=== PATIENT | female | born 2000 | race Hispanic/Latino ===

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

== ENCOUNTER 2022-03-10 00:10 | Emergency (ER) | payer OTHER ==
--- OUTSIDE RECORDS SUMMARY | 2022-03-10 00:12 | XMS REPORT | Continuity of Care Document ---
:2000 Author Organization [facility] t Address [address] [place] [address] Care Team Providers Name Role Phone Catia Edmondson Primary Care Physician Joseph SEGAL Attending Clinician Payers Payer Name Policy Type Policy Number Effective Date Expiration Date S ource Problems Condition Condition Condition Status Onset Resolution Last Treating Co mments Source Name Details Category Date Date Treatment Clinician Date Abnormal Abnormal Disease Active Unive rs CT of CT of 10-26 ity of brain brain 00:00: [place] [facility] TOOLMAN TOOLMAN Disease Active Univers stimulant stimulant 10-26 [place] overdose[place] 00 Med[place] l initial initial Branch encounter encounter Chlamydia Chlamydia Disease Active Uni vers trachomati trachomati 06-10 it y of s s 00:00: [place] infection infection 00 Medi maría of lower of lower Branch genitourin genitourin lola sites lola sites 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 06-01 it y of tive tive 00:00: [place] disorder disorder 00 Medica l due to due to Branch another another medical medical condition condition CVA CVA Disease Active Univers (cerebral (cerebral 05-31 ity of vascular vascular 00:00: [place] accident) accident) [facility] Suicide Suicide Disease Active Univers attempt attempt 05-31 ity of 00:00: [place] 00 [facility] Illicit Illicit Disease Active Univers drug use drug use 05-30 ity of 00:00: [place] 00 [facility] Purposeful Purposeful Disease Active U nivers non-suicid non-suicid 05-30 it y of al drug al drug 00:00: [place] ingestion ingestion [facility] Allergies, Adverse Reactions, Alerts This patient has no known allergies or adverse reactions. Social History Social Habit Start Date Stop Date Quantity Comments Source Alcohol intake 2021-11-09 2021-11-09 Current University of 00:00:00 00:00:00 non-drinker of [facility] alcohol [place] (finding) Tobacco use and 2019-01-21 2019-01-21 Never used Universit y of exposure 00:00:00 00:00:00 [facility] Sex Assigned At [birth year] Universit y of 00:00:00 00:00:00 [facility] Smoking Status Start Date Stop Date Source Never smoker [facility] Medications Ordered Filled Start Stop Current Ordering Indication Dosage Frequency Signature Comments Components Source Medication Medication Date Date Medication? Clinician (SIG) Name Name Clindamycin 2021- No [id number] 1{appli Insert 1 Univers Phosphate 3-10 18 cator} Applicator i ty of (CLINDESSE) 00:00: 04:59 into [place] 2 % CmSR 00 :00 vagina at [facility] bedtime [place] for 7 days. Immunizations Ordered Filled Immunization Date Status Comments [facility] e Immunization Name Name Influenza Virus 2019-07-05 Completed Universit y of Vaccine Quad .5 mL 00:00:00 [facility] IM 6+ MO Branch TDAP 2019-07-05 Completed University 00:00:00 [facility] Rho (d) Immune 2019-07-05 Completed [facility] Globulin 00:00:00 [facility] Procedures This patient has no known procedures. Encounters Start End Encounter Admission Attending Care Care Encounter Source Date/Time Date/Time Type Type Clinicians Facility Department ID 2021-11-17 2021-11-[address] [facility] [id number] Univers 00:00:00 00:00:00 SHARYN [id number] it y of WOMEN'S [id number] [facility] [id number] [facility] [address] Branch Results This patient has no known results.
[2022-03-10] MEDS ORDERED: NA CHLORIDE 0.9% 1,000 ML ONE (01:18)
[2022-03-10 01:19] LABS: Absolute Lymphocytes (CBC) 0.8 K/uL (0.7-4.9); Hematocrit 38.4 % (36.0-45.0); Lymphocytes % 12.2 % (15.3-44.8); MPV 10.6 fL (7.6-11.3); RBC Red Blood Cell Count 4.49 M/uL (3.86-4.86)
[2022-03-10 01:20] LABS: Protime INR 1.2
[2022-03-10 01:47] LABS: ALT/SGPT 23 U/L (12-78); AST/SGOT 22 U/L (15-37); Albumin 4.1 g/dL (3.4-5.0); Alkaline Phosphatase 117 U/L (45-117); BUN Blood Urea Nitrogen 8 mg/dL (7-18); Bicarbonate 25 mmol/L (21-32); Bilirubin Direct 0.2 mg/dL (0-0.2); Bilirubin Total 0.8 mg/dL (0.2-1.0); Glomerular Filtration Rate 131 ml/min (=/>90); Glucose Level 92 mg/dL (74-106); Potassium 4.2 mmol/L (3.5-5.1); Protein, Total 7.3 g/dL (6.4-8.2); Sodium Level 140 mmol/L (136-145)
[2022-03-10 03:11] LABS: Urine Blood Negative (Negative); Urine Glucose Negative (Negative); Urine Protein 1+ (Negative); Urine Specific Gravity >=1.030 (1.005-1.030)
[2022-03-10] MEDS ORDERED: CEFTRIAXONE 1000 MG/VIAL ONE (03:31)
[2022-03-10 03:57] LABS: Barbiturates NEGATIVE (NEGATIVE); Benzodiazepines POSITIVE (NEGATIVE); Cocaine POSITIVE (NEGATIVE); METHAMPHETAM NEGATIVE (NEGATIVE); Methadone NEGATIVE (NEGATIVE); Opiates NEGATIVE (NEGATIVE); Phencyclidine NEGATIVE (NEGATIVE); THC Cannibis POSITIVE (NEGATIVE)
--- NOTE | 2022-03-10 06:34 | EDPHYS ---
Physician Documentation [facility] Name: Ida Tesfaye Age: 21 yrs Sex: Female : 2000 Arrival Date: 03/10/2022 Time: 00:13 Bed 18 Private MD: ED Physician Pacheco Lloyd HPI: 03/10 02:23 This 21 yrs old Female presents to ER via EMS with complaints of ams, overdose.shanna 02:23 The patient presents to the emergency department after a known overdose, a result of [facility] recreational substance abuse. Context: the OD/poisoning occurred at at home. Associated signs and symptoms: Pertinent positives: dizziness. The patient has experienced similar episodes in the past, several times. 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 - Social history:: Smoking status: unknown. - Family history:: not pertinent. ROS: 02:23 Constitutional: Negative for fever, chills, and weight loss, Eyes: Negative for injury, shanna pain, redness, and discharge, ENT: Negative for injury, pain, and discharge, Neck: Negative for injury, pain, and swelling, Cardiovascular: Negative for chest pain, palpitations, and edema, Respiratory: Negative for shortness of breath, cough, wheezing, and pleuritic chest pain, Abdomen/GI: Negative for abdominal pain, nausea, vomiting, diarrhea, and constipation, Back: Negative for injury and pain, : Negative for injury, bleeding, discharge, and swelling, MS/Extremity: Negative for injury and deformity, Skin: Negative for injury, rash, and discoloration, Neuro: Negative for headache, weakness, numbness, tingling, and seizure, Allergy/Immunology: Negative for hives, rash, and allergies, Endocrine: Negative for neck swelling, polydipsia, polyuria, polyphagia, and marked weight changes, Hematologic/Lymphatic: Negative for swollen nodes, abnormal bleeding, and unusual bruising. 02:23 Neuro: Positive for altered mental status. 02:23 Psych: Positive for depression. Exam: 02:23 Constitutional: This is a well developed, well nourished patient who is awake, alert, shanna and in no acute distress. Head/Face: Normocephalic, atraumatic. Eyes: Pupils equal round and reactive to light, extra-ocular motions intact. Lids and lashes normal. Conjunctiva and sclera are non-icteric and not injected. Cornea within normal limits. Periorbital areas with no swelling, redness, or edema. ENT: Nares patent. No nasal discharge, no septal abnormalities noted. Tympanic membranes are normal and external auditory canals are clear. Oropharynx with no redness, swelling, or masses, exudates, or evidence of obstruction, uvula midline. Mucous membranes moist. Neck: Trachea midline, no thyromegaly or masses palpated, and no cervical lymphadenopathy. Supple, full range of motion without nuchal rigidity, or vertebral point tenderness. No Meningismus. Chest/axilla: Normal chest wall appearance and motion. Nontender with no deformity. No lesions are appreciated. Cardiovascular: Regular rate and rhythm with a normal S1 and S2. No gallops, murmurs, or rubs. Normal PMI, no JVD. No pulse deficits. Respiratory: Lungs have equal breath sounds bilaterally, clear to auscultation and percussion. No rales, rhonchi or wheezes noted. No increased work of breathing, no retractions or nasal flaring. Abdomen/GI: Soft, non-tender, with normal bowel sounds. No distension or tympany. No guarding or rebound. No evidence of tenderness throughout. Back: No spinal tenderness. No costovertebral tenderness. Full range of motion. Skin: Warm, dry with normal turgor. Normal color with no rashes, no lesions, and no evidence of cellulitis. MS/ Extremity: Pulses equal, no cyanosis. Neurovascular intact. Full, normal range of motion. Neuro: Awake and alert, GCS 15, oriented to person, place, time, and situation. Cranial nerves II-XII grossly intact. Motor strength 5/5 in all extremities. Sensory grossly intact. Cerebellar exam normal. Normal gait. Psych: Awake, alert, with orientation to person, place and time. Behavior, mood, and affect are within normal limits. 02:29 ECG was reviewed by the Attending Physician. [facility] Vital Signs: 00:15 BP 116 / 78; Pulse 75; Resp 19; Temp 98.6(O); Pulse Ox 98% on R/A; Weight 49.9 kg; kd3 Height 5 ft. 3 in. (160.02 cm); Pain 0/10; 01:20 BP 104 / 65; Pulse 56; Resp 16; Pulse Ox 99% on R/A; kd3 02:50 BP 118 / 78; Pulse 68; Resp 18; Pulse Ox 98% ; kd3 03:09 BP 108 / 65; Pulse 59; Resp 18; Pulse Ox 98% on R/A; kd3 03:59 BP 112 / 86; Pulse 64; Resp 18; Pulse Ox 98% on R/A; kd3 04:45 BP 106 / 82; Pulse 80; Resp 17; Pulse Ox 99% on R/A; kd3 05:46 BP 107 / 74; Pulse 62; Resp 18; Pulse Ox 97% on R/A; kd3 06:26 BP 119 / 78; Pulse 59; Resp 15; Pulse Ox 97% ; kd3 00:15 Body Mass Index 19.49 (49.90 kg, 160.02 cm) kd3 MDM: 00:51 Patient medically screened. shanna 02:25 Differential diagnosis: Ingestion/exposure to lexapro, percocet. Data reviewed: vital shanna signs, nurses notes, lab test result(s), EKG. Data interpreted: awake overnight monitor: rate is 56 beats/min, rhythm is regular, Pulse oximetry: on room air is 99 %. Test interpretation: by ED physician or midlevel provider: ECG. Counseling: I had a detailed discussion with the patient and/or guardian regarding: the historical points, exam findings, and any diagnostic results supporting the discharge/admit diagnosis. 03/10 00:45 Order name: Acetaminophen 3 03/10 00:45 Order name: Basic Metabolic Panel kd3 03/10 00:45 Order name: CBC with Diff; Complete Time: 02:3 03/10 00:45 Order name: ETOH Level; Complete Time: 02:3 03/10 00:45 Order name: Hepatic Function 3 03/10 00:45 Order name: PT-INR; Complete Time: 02: 3 03/10 00:45 Order name: Ptt, Activated; Complete Time: 02: 3 03/10 00:45 Order name: Salicylate; Complete Time: 02:22 kd3 03/10 00:45 Order name: Urine Drug Screen; Complete Time: 05:31 kd3 03/10 01:26 Order name: Glucose, Ancillary Testing; Complete Time: 02:22 EDMS 03/10 03:11 Order name: Urine Dipstick-Ancillary; Complete Time: 03:12 EDMS 03/10 03:14 Order name: Urine Culture shanna 03/10 00:45 Order name: Accucheck; Complete Time: 01:18 kd3 03/10 00:45 Order name: EKG; Complete Time: 00:46 kd3 03/10 00:45 Order name: EKG - Nurse/Tech; Complete Time: 00:47 kd3 03/10 00:45 Order name: IV Saline Lock; Complete Time: 00:55 kd3 03/10 00:45 Order name: Labs collected and sent; Complete Time: 00:55 kd3 03/10 00:45 Order name: Suicide Screening ([place]); Complete Time: 00:47 kd3 03/10 00:45 Order name: Urine Dipstick-Ancillary (obtain specimen); Complete Time: 03:08 kd3 03/10 00:47 Order name: Urine Test (obtain specimen); Complete Time: 03:08 kd3 EC:29 Rate is 58 beats/min. Rhythm is regular. QRS [place] is Normal. CT interval is normal. QRS shanna interval is normal. QT interval is normal. No Q waves. T waves are Normal. No ST changes noted. Clinical impression: NSR w/ Non-specific ST/T Changes and No evidence of ischemia. Interpreted by me. Reviewed by me. Administered Medications: 01:17 Drug: NS 0.9% 1000 ml Route: IV; Rate: 1 bolus; Site: left antecubital; kd3 06:39 Follow up: Response: No adverse reaction; IV Status: Completed infusion kd3 01:18 CANCELLED (Duplicate Order): NS 0.9% 1000 ml IV at 1 bolus Per protocol; 1000 mL bolus kd3 03:26 Drug: Rocephin (cefTRIAXone) 1 grams Route: IV; Rate: per protocol; Site: left kd3 antecubital; 06:38 Follow up: Response: No adverse reaction; IV Status: Completed infusion kd3 Disposition Summary: 03/10/22 06:33 Discharge Ordered Location: Home shanna Problem: new shanna Symptoms: have improved shanna Condition: Stable shanna Diagnosis - Other depressive episodes shanna - Other psychoactive substance use, unspecified - lexapro/percocet shanna - UTI/ Urinary tract infection, site not specified shanna - Cocaine abuse shanna - Abuse of other non-psychoactive substances shanna - Adverse effect of benzodiazepines shanna Followup: shanna - With: Private Physician - When: 2 - 3 days - Reason: Recheck today's complaints, Re-evaluation by your physician Followup: shanna - With: - When: 2 - 3 days - Reason: Recheck today's complaints, Continuance of care, Re-evaluation by your physician Discharge Instructions: - Discharge Summary Sheet shanna - Substance Use Disorder shanna - Managing Depression, Adult shanna - Substance Use Disorder and Mental Illness shanna - Urinary Tract Infection, Adult shanna - Urinary Tract Infection, Adult, [id number]-Cfst shanna - Supporting Someone With Substance Use Disorder shanna Forms: - Medication Reconciliation Form shanna - Thank You Letter shanna - Antibiotic Education shanna - Prescription Opioid Use shanna Prescriptions: - Cipro 250 mg Oral Tablet - take 1 tablet by ORAL route every 12 hours; 14 tablet; Refills: 0, Product shanna Selection Permitted Signatures: Dispatcher [employer] EDPacheco Mitchell MD MD cha Doucette, Kyli RN RN kd3 Corrections: (The following items were deleted from the chart) 01:18 00:45 NS 0.9% 1000 ml IV at 1 bolus Per protocol; 1000 mL bolus ordered. kd3 kd3
--- NOTE | 2022-03-10 06:34 | ER ---
Nurse's Notes [facility] Name: Ida Tesfaye Age: 21 yrs Sex: Female : 2000 Arrival Date: 03/10/2022 Time: 00:13 Bed 18 Private MD: Diagnosis: Other depressive episodes;Other psychoactive substance use, unspecified-lexapro/percocet;UTI/ Urinary tract infection, site not specified;Cocaine abuse;Abuse of other non-psychoactive substances;Adverse effect of benzodiazepines Presentation: 03/10 00:15 Chief complaint: EMS states: pt took 30 pills of escitalopram and 1 OxyContin in an kd3 attempt to get high around 1800 to 1900. pt vomited large amounts several times. Coronavirus screen: Vaccine status: Patient reports receiving the 2nd dose of the covid vaccine. Ebola Screen: No symptoms or risks identified at this time. Initial Sepsis Screen: Does the patient meet any 2 criteria? No. Patient's initial sepsis screen is negative. Does the patient have a suspected source of infection? No. Patient's initial sepsis screen is negative. Risk Assessment: Do you want to hurt yourself or someone else? Patient reports no desire to harm self or others. Onset of symptoms was March 10, 2022. 00:15 Method Of Arrival: EMS kd3 00:15 Acuity: AMIEE 3 kd3 Triage Assessment: 00:24 General: Appears in no apparent distress. Behavior is calm, cooperative. Pain: Denies kd3 pain. 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 - Social history:: Smoking status: unknown. - Family history:: not pertinent. Screenin:25 Abuse screen: Denies threats or abuse. Denies injuries from another. Nutritional kd3 screening: No deficits noted. Tuberculosis screening: No symptoms or risk factors identified. Fall Risk None identified. Assessment: 00:47 Reassessment: pt denies any thought of harming herself or others. kd3 01:21 Reassessment: Patient and/or family updated on plan of care and expected duration. Pain kd3 level reassessed. Patient is alert, oriented x 3, equal unlabored respirations, skin warm/dry/pink. this RN spoke with poison control, , passenger relations representative; Jordana. recommendations include, basic toxicology screening and cbc, CMP and to monitor electrolytes. in addition, pt needs to be monitored for a temperature spike, hypo or hyper glycemia, and possible seizure activities, even tho theses symptoms are rare. symptoms to expect include drowsiness and headache. pt started on a NS bolus per poison control recommendation. 01:26 Reassessment: poison control recommends the patient be observed for 13 hours. pt and MD cheatham notified of recommended observation time. 03:09 General: Appears in no apparent distress. Behavior is calm, cooperative, drowsy. Pain: kd3 Denies pain. Neuro: Level of Consciousness is awake, alert, obeys commands, Oriented to person, place, time, situation. Cardiovascular: Patient's skin is warm and dry. Rhythm is sinus bradycardia. Respiratory: Airway is patent Trachea midline Respiratory effort is even, unlabored, Respiratory pattern is regular. 04:00 Reassessment: No changes from previously documented assessment. Patient and/or family kd3 updated on plan of care and expected duration. Pain level reassessed. Patient is alert, oriented x 3, equal unlabored respirations, skin warm/dry/pink. 04:46 Reassessment: No changes from previously documented assessment. Patient and/or family kd3 updated on plan of care and expected duration. Pain level reassessed. Patient is alert, oriented x 3, equal unlabored respirations, skin warm/dry/pink. 05:46 Reassessment: Patient and/or family updated on plan of care and expected duration. Pain kd3 level reassessed. Patient is alert, oriented x 3, equal unlabored respirations, skin warm/dry/pink. this RN updated poison control regarding the pt and plan. Vital Signs: 00:15 BP 116 / 78; Pulse 75; Resp 19; Temp 98.6(O); Pulse Ox 98% on R/A; Weight 49.9 kg; kd3 Height 5 ft. 3 in. (160.02 cm); Pain 0/10; 01:20 BP 104 / 65; Pulse 56; Resp 16; Pulse Ox 99% on R/A; kd3 02:50 BP 118 / 78; Pulse 68; Resp 18; Pulse Ox 98% ; kd3 03:09 BP 108 / 65; Pulse 59; Resp 18; Pulse Ox 98% on R/A; kd3 03:59 BP 112 / 86; Pulse 64; Resp 18; Pulse Ox 98% on R/A; kd3 04:45 BP 106 / 82; Pulse 80; Resp 17; Pulse Ox 99% on R/A; kd3 05:46 BP 107 / 74; Pulse 62; Resp 18; Pulse Ox 97% on R/A; kd3 06:26 BP 119 / 78; Pulse 59; Resp 15; Pulse Ox 97% ; kd3 00:15 Body Mass Index 19.49 (49.90 kg, 160.02 cm) kd3 ED Course: 00:13 Patient arrived in ED. mw2 00:13 Shannan Gibson, RN is Primary Nurse. kd3 00:23 Triage completed. kd3 00:24 Arm band placed on right wrist. kd3 00:25 Patient has correct armband on for positive identification. kd3 00:25 No provider procedures requiring assistance completed. kd3 00:50 Pacheco Lloyd MD is Attending Physician. shanna 06:33 Emerson Jett MD is Referral Physician. shanna 06:38 IV discontinued, intact, bleeding controlled, No redness/swelling at site. Pressure kd3 dressing applied. Administered Medications: 01:17 Drug: NS 0.9% 1000 ml Route: IV; Rate: 1 bolus; Site: left antecubital; kd3 06:39 Follow up: Response: No adverse reaction; IV Status: Completed infusion kd3 01:18 CANCELLED (Duplicate Order): NS 0.9% 1000 ml IV at 1 bolus Per protocol; 1000 mL bolus kd3 03:26 Drug: Rocephin (cefTRIAXone) 1 grams Route: IV; Rate: per protocol; Site: left kd3 antecubital; 06:38 Follow up: Response: No adverse reaction; IV Status: Completed infusion kd3 Medication: 00:25 VIS not applicable for this client. kd3 Outcome: 06:33 Discharge ordered by . shanna 06:38 Discharged to home ambulatory. kd3 06:38 Condition: stable 06:38 Discharge instructions given to patient, Instructed on discharge instructions, follow up and referral plans. medication usage, Demonstrated understanding of instructions, follow-up care, medications, Prescriptions given X 1. 06:43 Patient left the ED. kd3 Addendum: 03/13/2022 18:40 Addendum: Culture Results: Positive urine culture. No further action required. Bacteria s s sensitive to prescribed antibiotic. Signatures: Pacheco Lloyd MD MD cha Smirch, Shelby, RN RN [facility] Shannan Gibson RN RN kd3
[2022-03-10 06:56] VITALS: TEMP 98.6
[2022-03-10 07:12] VITALS: O2SAT 97
[2022-03-10 07:13] VITALS: BP 119/78
--- NOTE | 2022-03-10 15:28 | EKG ---
Test Date: 2022-03-10 Test Time: 00:28:49 Director Workers Compensation: FRAN MEASUREMENT RESULTS: Intervals: Rate: 58 [place]: 138 QRSD: 88 QT: 420 QTc: 412 [place]: P: 11 [place]: 138 QRS: 88 T: 58 INTERPRETIVE STATEMENTS: Sinus bradycardia Otherwise normal ECG Compared to ECG 05/30/2018 05:47:08 Sinus rhythm no longer present Electronically Signed On 03-10-22 15:26:53 CDT by Fred Balbuena
== END 2022-03-10 06:43 | disposition home or self-care (01) ==
LOC: ER 00:10
DX: F32.89 Other specified depressive episodes (principal); F19.90 Other psychoactive substance use, unspecified, uncomplicated; N39.0 Urinary tract infection, site not specified; F14.10 Cocaine abuse, uncomplicated; F55.8 Abuse of other non-psychoactive substances; T42.4X5A Adverse effect of benzodiazepines, initial encounter; F41.9 Anxiety disorder, unspecified
CPT/HCPCS: 96365; 96361; 93005; 87088; 85025; 87086; 80048; 36415; 80320; 80329 ×2; 85610; 82947; 80076; 85730; 87077; 87186; 81003; 80307; 99284; 96366; J7030

== ENCOUNTER 2022-03-28 21:08 | Emergency (ER) | payer OTHER ==
[2022-03-28] MEDS ORDERED: NA CHLORIDE 0.9% 1,000 ML ONE (22:15)
--- NOTE | 2022-03-28 22:28 | EDPHYS ---
Physician Documentation [facility] Name: Ida Tesfaye Age: 21 yrs Sex: Female : 2000 Arrival Date: 03/28/2022 Time: 21:11 Bed 26 Private MD: ED Physician Pacheco Lloyd HPI: 03/28 21:57 This 21 yrs old Female presents to ER via Ambulatory with complaints of Drug pm1 Abuse. 21:59 . Patient with reported polysubstance abuse and is seeking help in the ER for drug pm1 rehabilitation. Patient reports using cocaine marijuana and fentanyl. Patient is here in the ER with her boyfriend who is presenting with the same complaint of polysubstance abuse. Onset: The symptoms/episode began/occurred Patient has been using drugs for multiple years. The patient has not recently seen a physician. PLUG GROWER: 21:28 LMP 09/25/2019 jb4 Historical: - Allergies: 21:28 No Known Allergies; jb4 - PMHx: 21:28 Anxiety; depressive disorder; jb4 - PSHx: 21:28 None; jb4 - Immunization history:: Adult Immunizations up to date. - Social history:: Smoking status: Reported history of juuling and/or vaping. Patient uses street drugs, cocaine, marijuana, M30, Fentynal, Patient/guardian denies using alcohol. ROS: 21:59 Constitutional: Negative for fever, chills, and weight loss, Cardiovascular: Negative pm1 for chest pain, palpitations, and edema, Respiratory: Negative for shortness of breath, cough, wheezing, and pleuritic chest pain, Abdomen/GI: Negative for abdominal pain, nausea, vomiting, diarrhea, and constipation, Back: Negative for injury and pain, MS/Extremity: Negative for injury and deformity, Skin: Negative for injury, rash, and discoloration, Neuro: Negative for headache, weakness, numbness, tingling, and seizure. 21:59 All other systems are negative. Exam: 21:59 Constitutional: This is a well developed, well nourished patient who is awake, alert, pm1 and in no acute distress. Head/Face: Normocephalic, atraumatic. 21:59 Back: No spinal tenderness. No costovertebral tenderness. Full range of motion. Skin: Warm, dry with normal turgor. Normal color with no rashes, no lesions, and no evidence of cellulitis. MS/ Extremity: Pulses equal, no cyanosis. Neurovascular intact. Full, normal range of motion. 21:59 Eyes: Exam is negative for acute changes, Periorbital structures: appear normal, Pupils: no acute changes, Extraocular movements: no acute changes, Conjunctiva: no acute changes, no injection. 21:59 ENT: Exam is negative for acute changes, External ear(s): no acute changes, Ear canal(s): no acute changes, TM's: no acute changes, Mouth: no acute changes, Lips: normal, moist, Oral mucosa: normal, pink and intact, moist. 21:59 Cardiovascular: Exam negative for acute changes, Rate: normal, Rhythm: regular, Pulses: no pulse deficits are appreciated. 21:59 Respiratory: Exam negative for acute changes, respiratory distress, shortness of breath. 21:59 Abdomen/GI: Exam negative for acute changes, Inspection: abdomen appears normal, Palpation: abdomen is soft and non-tender, in all quadrants. 21:59 Neuro: Exam negative for acute changes, Orientation: is normal, Mentation: is normal, Motor: is normal, moves all fours. 23:25 ECG was reviewed by the Attending Physician. [facility] Vital Signs: 21:25 BP 120 / 94; Pulse 76; Resp 16; Temp 99.3(TE); Pulse Ox 100% ; Weight 45.36 kg (R); jb4 Height 5 ft. 3 in. (160.02 cm) (R); Pain 8/10; 22:48 BP 115 / 79; Pulse 89; Resp 18 S; Pulse Ox 100% on R/A; bb 03/29 00:50 BP 128 / 85; Pulse 85; Resp 16; Pulse Ox 97% on R/A; Pain 10/10; jb4 03/28 21:25 Body Mass Index 17.71 (45.36 kg, 160.02 cm) [facility] MDM: 03/28 21:43 Patient medically screened. [facility] 22:24 Data reviewed: vital signs. Data interpreted: Pulse oximetry: on room air is 100 %. pm1 Interpretation: normal. Counseling: I had a detailed discussion with the patient and/or guardian regarding: the need for outpatient follow up, for definitive care, need for treatment in a drug rehabilitation center and cessation of drug use. Patient wants to leave to go home with her boyfriend who is in the ER for drug abuse also. She does not want to get any labs or fluids for her symptoms. 23:01 ED course: Patient with possible seizure activity and fall in her boyfriend's ER room. pm1 Will order CT head and neck for evaluation for injury. 03/29 00:47 ED course: CT head and neck negative. pm1 03/28 21:57 Order name: Acetaminophen; Complete Time: 23:35 pm1 03/28 21:57 Order name: Basic Metabolic Panel; Complete Time: 23:35 pm1 03/28 21:57 Order name: CBC with Diff; Complete Time: 23:28 pm03/28 21:57 Order name: ETOH Level; Complete Time: 23:35 pm03/28 21:57 Order name: Hepatic Function; Complete Time: 23:35 pm03/28 21:57 Order name: PT-INR; Complete Time: 23:28 pm03/28 21:57 Order name: Ptt, Activated; Complete Time: 23:28 pm03/28 21:57 Order name: Salicylate; Complete Time: 23:35 pm1 03/28 21:57 Order name: Urine Drug Screen; Complete Time: 23:35 pm03/28 22:53 Order name: Urine --Ancillary (enter results); Complete Time: 23:28 03/28 22:53 Order name: Urine Dipstick-Ancillary; Complete Time: 22:58 EDMA 03/28 22:59 Order name: CT Head C Spine pm1 03/28 21:57 Order name: EKG - Nurse/Tech; Complete Time: 22:51 pm03/28 21:57 Order name: IV Saline Lock; Complete Time: 22:51 pm03/28 21:57 Order name: Labs collected and sent; Complete Time: 22:51 pm03/28 21:57 Order name: Urine Dipstick-Ancillary (obtain specimen); Complete Time: 22:51 pm03/28 21:57 Order name: Urine Test (obtain specimen); Complete Time: 22:51 pm1 EC/04 23:25 Rate is 94 beats/min. Rhythm is regular. QRS [place] is Normal. MO interval is normal. QRS shanna interval is normal. QT interval is normal. No Q waves. T waves are Normal. No ST changes noted. Clinical impression: NSR w/ Non-specific ST/T Changes and No evidence of ischemia. Interpreted by me. Reviewed by me. Administered Medications: 23:56 Discontinued: NS 0.9% 1000 ml IV at 1000 ml once bb 22:51 Drug: NS 0.9% 1000 ml Route: IV; Rate: 1000 ml; Site: right antecubital; bb 23:08 CANCELLED (Duplicate Order): Ativan (LORazepam) 1 mg IVP once bb 23:56 Drug: NS 0.9% 1000 ml Route: IV; Rate: 1000 ml; Site: left antecubital; bb 03/29 01:03 Follow up: IV Status: Completed infusion; IV Intake: 950ml bb 01:03 Not Given (Physician Discretion): Zofran (Ondansetron) 4 mg IVP once; over 2 minutes bb 01:03 Not Given (Physician Discretion): Ativan (LORazepam) 1 mg IVP once bb Disposition Summary: 03/29/22 00:51 Discharge Ordered Location: Home(03/29/22 00:51) pm1 Problem: new(03/29/22 00:51) pm1 Symptoms: have improved(03/29/22 00:51) pm1 Condition: Stable(03/29/22 00:51) pm1 Diagnosis - Other seizures pm1 - Cannabis abuse pm1 - Cocaine abuse pm1 - Benzodiazepine abuse pm1 Followup: pm1 - With: Emergency Department - When: As needed - Reason: Worsening of condition Followup: pm1 - With: Private Physician - When: 2 - 3 days - Reason: Recheck today's complaints, Continuance of care, Re-evaluation by your physician Discharge Instructions: - Discharge Summary Sheet pm1 - Cocaine Use Disorder pm1 - Cannabis Use Disorder pm1 - Seizure, Adult pm1 - Illegal Drug Use Information, Adult pm1 Forms: - Medication Reconciliation Form pm1 - Thank You Letter pm1 - Antibiotic Education pm1 - Prescription Opioid Use pm1 Signatures: Dispatcher [employer] EDMS Pacheco Lloyd MD MD cha Ballard, Brenda, RN RN bb Dez Quintero, TIGHTENER TIGHTENER pm1 Buddy Parsons, RN RN jb4 Corrections: (The following items were deleted from the chart) 03/28 22:54 22:27 Home pm1 pm1 :54 22:27 new pm1 pm1 : 22:27 have improved pm1 pm1 : 22:27 Undetermined pm1 pm1 : 22:27 Polysubstance drug abuse pm1 pm1 23: 22:58 Head C Spine MPR Wo Con+CT.RAD.BRZ ordered. EDMS EDMS : 22:59 Ativan (LORazepam) 1 mg IVP once ordered. pm1 bb
--- NOTE | 2022-03-28 22:28 | ER ---
Nurse's Notes [facility] Name: Ida Tesfaye Age: 21 yrs Sex: Female : 2000 Arrival Date: 03/28/2022 Time: 21:11 Bed 26 Private MD: Diagnosis: Other seizures;Cannabis abuse;Cocaine abuse;Benzodiazepine abuse Presentation: 03/28 21:25 Chief complaint: Patient states: I last used fentanyl around 2am. I am currently jb4 withdrawing from it. Coronavirus screen: At this time, the client does not indicate any symptoms associated with coronavirus-19. Ebola Screen: No symptoms or risks identified at this time. Initial Sepsis Screen: Does the patient meet any 2 criteria? No. Patient's initial sepsis screen is negative. Does the patient have a suspected source of infection? No. Patient's initial sepsis screen is negative. Risk Assessment: Do you want to hurt yourself or someone else? Patient reports no desire to harm self or others. Onset of symptoms was March 28, 2022. Transition of care: patient was not received from another setting of care. 21:25 Method Of Arrival: Ambulatory jb4 21:25 Acuity: AIMEE 3 jb4 Triage Assessment: 21:28 General: Appears in no apparent distress. uncomfortable, Behavior is calm, cooperative, jb4 appropriate for age. Pain: Complains of pain in Generalized body pain. Pain does not radiate. Pain currently is 8 out of 10 on a pain scale. Neuro: Level of Consciousness is awake, alert, obeys commands, Oriented to person, place, time, situation. Cardiovascular: Patient's skin is warm and dry. Respiratory: Airway is patent Respiratory effort is even, unlabored, Respiratory pattern is regular, symmetrical. GI: Reports nausea, vomiting. Derm: Skin is intact, Skin is pink, warm \\T\\ dry. Musculoskeletal: Circulation, motion, and sensation intact. Range of motion: intact in all extremities. ARNP: 21:28 LMP 09/25/2019 jb4 Historical: - Allergies: 21:28 No Known Allergies; jb4 - PMHx: 21:28 Anxiety; depressive disorder; jb4 - PSHx: 21:28 None; jb4 - Immunization history:: Adult Immunizations up to date. - Social history:: Smoking status: Reported history of juuling and/or vaping. Patient uses street drugs, cocaine, marijuana, M30, Fentynal, Patient/guardian denies using alcohol. Screenin:47 Abuse screen: Denies threats or abuse. Nutritional screening: No deficits noted. bb Tuberculosis screening: No symptoms or risk factors identified. Fall Risk Fall in past 12 months (25 points). Secondary diagnosis (15 points) seizures, IV access (20 points). Ambulatory Aid- None/Bed Rest/Nurse Assist (0 pts). Gait- Weak (10 pts.). Mental Status- Overestimates/Forgets Limitations (15 pts.). Total Nicole Fall Scale indicates High Risk Score (45 or more points). Fall prevention measures have been instituted. Side Rails Up X 2 Placed Close to Nursing Station. Assessment: 22:34 General: Appears in no apparent distress. Behavior is calm, cooperative, upon bb discussion with pt she now refuses all treatment and is leaving with her boyfriend who is being discharged at the same time. 22:46 Reassessment: pt went to boyfriend's room and fell on the floor with seizure-like bb activity hitting her head. Pt returned to room and placed on seizure precautions. Pt was unconscious for approx 4 minutes. 23:17 Reassessment: pt has removed her IV and her C-Collar and wants to leave instructed her bb on need for CT scan due to her fall pt states she will cooperate. 23:57 Reassessment: Patient is alert, oriented x 3, equal unlabored respirations, skin bb warm/dry/pink. 03/29 00:35 Reassessment: Patient is alert, oriented x 3, equal unlabored respirations, skin bb warm/dry/pink. pt ambulated with steady gait to the bathroom. 00:50 Reassessment: Pt is awake and alert x4. Respirations are even and unlabored. Is jb4 reporting that she would like to go home now. Provider notified. 01:07 Reassessment: pt walking out of the ED has removed her own IV pt did not sign discharge bb paperwork or wait for instructions. Overdose: 03/28 22:45 Brick Suicide Severity Screening: "In the past month, have you wished you were bb or wished you could go to sleep and not wake up?" Patient responds "no." "In the past month, have you actually had any thoughts of killing yourself?" Patient responds "no.". Vital Signs: 21:25 BP 120 / 94; Pulse 76; Resp 16; Temp 99.3(TE); Pulse Ox 100% ; Weight 45.36 kg (R); jb4 Height 5 ft. 3 in. (160.02 cm) (R); Pain 8/10; 22:48 BP 115 / 79; Pulse 89; Resp 18 S; Pulse Ox 100% on R/A; bb 03/29 00:50 BP 128 / 85; Pulse 85; Resp 16; Pulse Ox 97% on R/A; Pain 10/10; jb4 03/28 21:25 Body Mass Index 17.71 (45.36 kg, 160.02 cm) jb4 ED Course: 03/28 21:11 Patient arrived in ED. bp1 21:28 Triage completed. jb4 21:28 Arm band placed on right wrist. jb4 21:40 Dez Quintero NP is PHCP. pm1 21:40 Pacheco Lloyd MD is Attending Physician. pm1 22:03 Jordana Lopez, RN is Primary Nurse. bb 22:44 Primary Nurse role handed off by Jordana Lopez, RN bb 22:45 Inserted saline lock: 18 gauge in right antecubital area, using aseptic technique. jb4 Blood collected. 22:46 Jordana Lopez, RN is Primary Nurse. bb 22:47 Patient has correct armband on for positive identification. Placed in gown. Bed in low bb position. Call light in reach. Side rails up X2. Client placed on continuous cardiac and pulse oximetry monitoring. NIBP monitoring applied. Warm blanket given. 22:53 Urine Drug Screen Sent. wm 22:53 Salicylate Sent. wm 22:53 Ptt, Activated Sent. wm 22:53 PT-INR Sent. wm 22:53 Hepatic Function Sent. wm 22:53 Acetaminophen Sent. wm 22:53 Basic Metabolic Panel Sent. wm 22:53 CBC with Diff Sent. wm 22:53 ETOH Level Sent. wm 23:41 CT Head C Spine In Process Unspecified. EDMS 23:50 Inserted saline lock: 20 gauge in left antecubital area, using aseptic technique. bb 03/29 01:08 IV discontinued, by patient. bb 01:08 No provider procedures requiring assistance completed. bb Administered Medications: 03/28 23:56 Discontinued: NS 0.9% 1000 ml IV at 1000 ml once bb 22:51 Drug: NS 0.9% 1000 ml Route: IV; Rate: 1000 ml; Site: right antecubital; bb 23:08 CANCELLED (Duplicate Order): Ativan (LORazepam) 1 mg IVP once bb 23:56 Drug: NS 0.9% 1000 ml Route: IV; Rate: 1000 ml; Site: left antecubital; bb 03/29 01:03 Follow up: IV Status: Completed infusion; IV Intake: 950ml bb 01:03 Not Given (Physician Discretion): Zofran (Ondansetron) 4 mg IVP once; over 2 minutes bb 01:03 Not Given (Physician Discretion): Ativan (LORazepam) 1 mg IVP once bb Medication: 01:04 VIS not applicable for this client. bb Intake: 01:03 IV: 950ml; Total: 950ml. bb Outcome: 03/28 22:27 Discharge ordered by MD. pm1 22:35 Discharged to home ambulatory, with friend. bb 22:35 Condition: stable 22:35 Discharge instructions given to patient, Instructed on discharge instructions, follow up and referral plans. Demonstrated understanding of instructions, follow-up care. 22:36 Patient left the ED. bb 03/29 00:51 Discharge ordered by MD. pm1 01:08 Patient left the ED. bb Signatures: Dispatcher [employer] Jordana Willoughby RN RN bb Marinas, Patrick, ASSISTANT CURATOR ASSISTANT CURATOR pm1 Buddy Parsons RN RN [email or web address] Chrissy Wetzel Wendy
[2022-03-28 22:48] VITALS: TEMP 99.3
[2022-03-28 22:53] LABS: Urine Blood Negative (Negative); Urine Glucose Negative (Negative); Urine Protein Negative (Negative); Urine pH 6.5 (5.0-7.0)
[2022-03-28] MEDS ORDERED: LORazepam 2 MG/ML VIAL ONE (23:20)
[2022-03-28 23:22] LABS: Absolute Lymphocytes (CBC) 2.6 K/uL (0.7-4.9); Hematocrit 46.7 % (36.0-45.0); Lymphocytes % 27.2 % (15.3-44.8); MCV 90.7 fL (80-100); MPV 10.4 fL (7.6-11.3); RBC Red Blood Cell Count 5.15 M/uL (3.86-4.86)
[2022-03-28 23:26] LABS: Protime INR 1.19
[2022-03-28 23:30] LABS: Barbiturates NEGATIVE (NEGATIVE); Benzodiazepines POSITIVE (NEGATIVE); Cocaine POSITIVE (NEGATIVE); METHAMPHETAM NEGATIVE (NEGATIVE); Methadone NEGATIVE (NEGATIVE); Opiates NEGATIVE (NEGATIVE); Phencyclidine NEGATIVE (NEGATIVE); THC Cannibis POSITIVE (NEGATIVE)
[2022-03-28 23:34] LABS: ALT/SGPT 22 U/L (12-78); AST/SGOT 20 U/L (15-37); Albumin 4.9 g/dL (3.4-5.0); Alkaline Phosphatase 133 U/L (45-117); BUN Blood Urea Nitrogen 11 mg/dL (7-18); Bilirubin Direct 0.2 mg/dL (0-0.2); Bilirubin Total 0.9 mg/dL (0.2-1.0); Glomerular Filtration Rate 91 ml/min (=/>90); Glucose Level 143 mg/dL (74-106); Potassium 3.5 mmol/L (3.5-5.1); Protein, Total 9.6 g/dL (6.4-8.2); Sodium Level 141 mmol/L (136-145)
[2022-03-28 23:35] LABS: Bicarbonate 14 mmol/L (21-32)
[2022-03-29] MEDS ORDERED: NA CHLORIDE 0.9% 1,000 ML ONE
[2022-03-29 02:23] VITALS: BP 128/85; O2SAT 97
--- NOTE | 2022-03-29 12:10 | RAD REPORT ---
EXAM DESCRIPTION: CT - [id number] - 03/29/2022 6:56 am CLINICAL HISTORY: 21 years Female, Head injury, seizure TECHNIQUE: Helical CT axial images are obtained of the brain and cervical spine without IV contrast. Multiplanar reconstruction. This exam was performed according to our departmental dose-optimization program, which includes automated exposure control, adjustment of the mA and/or kV according to patie nt size and/or use of iterative reconstruction technique. COMPARISON: None. FINDINGS: BRAIN: BRAIN: No infarcts. No parenchymal hemorrhage, intra-axial mass, mass effect, or midline shift. No a bnormal extra-axial fluid collections. VENTRICLES: Ventricles are normal in size and configuration. No hydrocephalus. CALVARIUM: Bone windows show no skull fracture or calvarial lesions. PARANASAL SINUSES AND MASTOIDS: Visualized paranasal sinuses are clear. Mastoid air cells are jerardo r. CERVICAL SPINE: VERTEBRA: There is straightening of the cervical spine. No acute fracture or subluxation. Cervical vertebra are normal in height. Craniocervical junction is intact. Normal vertebral body morpholog y. DISCS: Intervertebral discs are well-preserved. LEVELS: From the C2-C3 through the C7-T1 levels, no canal or foraminal stenosis. SOFT TISSUES: Paravertebral soft tissues are unremarkable. IMPRESSION: 1. Negative noncontrast CT examination brain. 2. No acute fracture or CT evidence of traumatic injury to cervical spine. 3. Straightening of cervical spine. Otherwise, negative examination. Electronically signed by: Compa Zepeda MD 03/29/2022 12:06 AM CDT Due to temporary technical issues with the PACS/Fluency reporting system, reports are being signed by the in house radiologist without review as a courtesy to ensure prompt reporting. The interpreting r adiologist is fully responsible for the content of the report.
== END 2022-03-29 01:08 | disposition home or self-care (01) ==
LOC: ER 21:08
DX: G40.89 Other seizures (principal); F12.10 Cannabis abuse, uncomplicated; F14.10 Cocaine abuse, uncomplicated; F13.10 Sedative, hypnotic or anxiolytic abuse, uncomplicated; F32.A Depression, unspecified; F41.9 Anxiety disorder, unspecified
CPT/HCPCS: 85025; 80048; 36415; 80320; 80329 ×2; 81025; 85610; 80076; 85730; 81003; 80307; 70450; 72125; J7030; 96360; 99284

== ENCOUNTER → 2023-10-20 | Emergency (ER) | payer OTHER, SELFPAY ==
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
[2023-10-20 17:15] LABS: Specific Gravity 1.021 (1.005-1.030)
[2023-10-20 17:18] LABS: Hematocrit 39.4 % (36.0-45.0); Lymphocytes % 13.3 % (15.3-44.8); MCV 87.5 fL (80-100); MPV 10.9 fL (7.6-11.3); Platelets 177 thou/uL (152-406); RBC Red Blood Cell Count 4.51 M/uL (3.86-4.86)
[2023-10-20 17:20] LABS: Albumin 4.2 g/dL (3.4-5.0); Bilirubin Total 0.5 mg/dL (0.2-1.0); Potassium 3.9 mEq/L (3.5-5.1)
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
--- NOTE | 2023-10-20 17:22 | EDPHYS ---
Physician Documentation [facility] Name: Ida Tesfaye Age: 23 yrs Sex: Female : 2000 Arrival Date: 10/20/2023 Time: 16:35 Bed 17 Private MD: ED Physician Richie Malloy HPI: 10/20 18:14 This 23 yrs old Female presents to ER via EMS with complaints of Drug Abuse. [facility] 18:14 23-year-old female with past medical history of anxiety, depression presents to the [facility] emergency department via [facility] for opioid withdrawal. Patient states she last used fentanyl this morning and was arrested around 5 AM. Patient states she has noted light to bother her. Patient denies nausea, vomiting, diarrhea. Historical: - Allergies: 16:38 No Known Allergies; ld1 - PMHx: 16:38 Anxiety; depressive disorder; ld1 - Immunization history:: Adult Immunizations up to date. - Social history:: Smoking status: Patient denies any tobacco usage or history of. Patient uses street drugs, Fentanyl . ROS: 18:14 Constitutional: Negative for fever, and chills. Neck: Negative for injury, pain, and ms3 swelling, Cardiovascular: Negative for chest pain, and palpitations. Respiratory: Negative for shortness of breath, cough, wheezing, and pleuritic chest pain, Abdomen/GI: Negative for abdominal pain, nausea, vomiting, diarrhea, and constipation, MS/Extremity: Negative for injury and deformity, 18:14 All other systems are negative, Exam: 18:14 Constitutional: This is a well developed, well nourished patient who is awake, alert, ms3 and in no acute distress. Head/Face: Normocephalic, atraumatic. Neck: Trachea midline, no cervical lymphadenopathy. Supple, full range of motion without nuchal rigidity, or vertebral point tenderness. No Meningismus. Chest/axilla: Normal chest wall appearance and motion. Nontender with no deformity. Cardiovascular: Regular rate and rhythm with a normal S1 and S2. No gallops, murmurs, or rubs. Normal PMI, no JVD. No pulse deficits. Respiratory: Lungs have equal breath sounds bilaterally, clear to auscultation and percussion. No rales, rhonchi or wheezes noted. No increased work of breathing, no retractions or nasal flaring. Abdomen/GI: Soft, non-tender, with normal bowel sounds. No distension or tympany. No guarding or rebound. No evidence of tenderness throughout. Skin: Warm, dry with normal turgor. Normal color with no rashes, no lesions, and no evidence of cellulitis. 18:18 ECG was reviewed by the Attending Physician. ms3 Vital Signs: 16:36 BP 114 / 88; ld1 16:58 Pulse 76; Resp 18; Temp 98.2(O); Pulse Ox 100% on R/A; ld1 17:52 BP 95 / 61; Pulse 67; Resp 16; Pulse Ox 97% ; bp MDM: 16:36 Patient medically screened. ms3 18:14 Differential Diagnosis Opioid withdrawal vs Electrolyte abnormality. Data reviewed: ms3 vital signs, nurses notes, lab test result(s), and as a result, I will discharge patient. Historians other than the Patient: EMS: [place]. Counseling: I had a detailed discussion with the patient and/or guardian regarding the historical points, exam findings, and any diagnostic results supporting the discharge/admit diagnosis, lab results, the need for outpatient follow up, Cessation of opioid use. Special discussion: I discussed with the patient/guardian in detail that at this point there is no indication for admission to the hospital. It is understood, however, that if the symptoms persist or worsen the patient needs to return immediately for re-evaluation. ED course: Discussed cessation of opioids with patient. Patient to follow-up with addiction medicine. Patient understands agrees with plan. Questions were answered. Return precautions discussed include worsening symptoms, or any other concern. 18:18 Care significantly affected by the following Social Determinants of Health: Poor access ms3 to healthcare and/or lack of insurance, Misuse of alcohol and/or drugs. 10/20 16:48 Order name: CBC with Diff; Complete Time: 17:20 ms3 10/20 16:48 Order name: CMP; Complete Time: 17:20 ms3 10/20 17:03 Order name: Test, Urine; Complete Time: 17:20 ld1 EC:18 Rate is 98 beats/min. Rhythm is regular. Right axis deviation noted. UT interval is ms3 normal. Clinical impression: Normal ECG. Interpreted by me. Reviewed by me. Administered Medications: No medications were administered Disposition Summary: 10/20/23 17:21 Discharge Ordered Notes: Location: Home ms3 Condition: Stable ms3 Diagnosis - Opioid dependence with withdrawal ms3 Discharge Instructions: - Discharge Summary Sheet ms3 - Finding Treatment for Addiction ms3 - Opioid Withdrawal ms3 - Opioid Withdrawal Treatment ms3 Forms: - Medication Reconciliation Form ms3 - Thank You Letter ms3 - Antibiotic Education ms3 - Prescription Opioid Use ms3 - Patient Portal Instructions ms3 - Leadership Thank You Letter ms3 Signatures: Dispatcher [employer] EDMS Richie Malloy, DO DO ms3 Anju Malloy, RN RN ld1
[2023-10-20 18:21] VITALS: TEMP 98.2
[2023-10-20 18:35] VITALS: BP 95/61; O2SAT 97
== END ==
LOC: ER 16:35
DX: F11.23 Opioid dependence with withdrawal (principal)
CPT/HCPCS: 36415; 80053; 81025; 85025; 93005